=== PATIENT | female | born 1955 | race Caucasian/White ===

== ENCOUNTER 2023-03-30 17:05 | Emergency (ER) | payer MEDICARE ==
[2023-03-30] MEDS: Diphtheria,Pertussis(Acell),Tetanus Vaccine 0.5 ML Syringe IM ONE (17:25)
== END 2023-03-30 17:29 | disposition home or self-care (01) ==
LOC: VM.ED 17:05
DX: S61.012A Laceration without foreign body of left thumb without damage to nail, initial encounter (principal); E78.00 Pure hypercholesterolemia, unspecified; Z88.0 Allergy status to penicillin; Z79.899 Other long term (current) drug therapy; Z23 Encounter for immunization; W26.8XXA Contact with other sharp object(s), not elsewhere classified, initial encounter
CPT/HCPCS: 90471; 90715; 99282; 99282-25